=== PATIENT | female | born 1970 | race Caucasian/White ===

== ENCOUNTER → 2016-11-11 | Outpatient (CLI) | payer OTHER ==
--- NOTE | 2016-11-11 10:32 | US ---
EXAM DESCRIPTION: Gallbladder ultrasound. CLINICAL HISTORY: Right upper quadrant pain COMPARISON: None. TECHNIQUE: Transabdominal sonography was performed by an computed tomography technologist. FINDINGS: The liver is echogenic. It measures 16 cm in diameter. No mass noted. No intrahepatic biliary duct dilatation. Cholelithiasis is noted. Gallbladder wall is not thickened. The common bile duct measures 5-6 mm on today's study. The pancreas is poorly visualized due to overlying bowel gas. Pancreatic body is unremarkable. IMPRESSION: Echogenic liver compatible with hepatocellular disease or fatty infiltration. Cholelithiasis. No evidence of acute cholecystitis on today's study. Electronically signed by: James Schumacher MD 11/11/2016 10:30
== END ==
LOC: US 08:30
PROVIDERS: ATTEND Family Medicine
DX: K80.20 Calculus of gallbladder without cholecystitis without obstruction (principal)

== ENCOUNTER → 2016-12-31 | Outpatient (CLI) | payer OTHER | END | disposition home or self-care (01) | LOC: LAB 07:30 | PROVIDERS: ATTEND Nurse Practitioner Acute Care | DX: E34.9 Endocrine disorder, unspecified (principal) ==

== ENCOUNTER → 2017-03-01 | Outpatient (CLI) | payer OTHER | END | disposition home or self-care (01) | LOC: LAB.O 15:19 | PROVIDERS: ATTEND Nurse Practitioner Acute Care | DX: N95.1 Menopausal and female climacteric states (principal); E07.89 Other specified disorders of thyroid; E34.9 Endocrine disorder, unspecified ==

== ENCOUNTER 2017-05-31 05:52 | Emergency (ER) | payer OTHER ==
--- NOTE | 2017-05-31 06:01 | ED.PDOC ---
History of Present Illness - General Source: patient Exam Limitations: no limitations - History of Present Illness Initial Comments: Kelly Conte 47 y/o female stated that she had 2-3 episodes of watery diarrhea about 2 hours ago with vomiting 2x.Ate fish tonight .No ill contact. Timing/Duration: 1-3 hours Severity: moderate Improving Factors: nothing Worsening Factors: eating Associated Symptoms: nausea/vomiting <Alex Bryson R - Last Filed: 05/31/17 06:36> <Alli Moody L - Last Filed: 05/31/17 07:47> - General Chief Complaint: GI Problem Stated Complaint: diarrhea Time Seen by Provider: 05/31/17 05:58 - History of Present Illness Allergies/Adverse Reactions: Allergies Penicillin G Adverse Reaction (Verified 05/31/17 06:06) Home Medications: Ambulatory Orders Ondansetron [Zofran Odt] 4 mg PO Q4H PRN #10 tab 05/31/17 Pristiq 05/31/17 Synthroid 05/31/17 Review of Systems - Review of Systems Constitutional: States: no symptoms reported EENTM: States: no symptoms reported Respiratory: States: no symptoms reported Cardiology: States: no symptoms reported Gastrointestinal/Abdominal: States: see HPI Genitourinary: States: no symptoms reported Musculoskeletal: States: no symptoms reported Skin: States: no symptoms reported Neurological: States: no symptoms reported Endocrine: States: no symptoms reported <Alex Bryson R - Last Filed: 05/31/17 06:36> Past Medical History (General) - Patient Medical History Hx Seizures: No Hx Stroke: No Hx Dementia: No Hx Asthma: No Hx of COPD: No Hx Cardiac Disorders: No Hx Congestive Heart Failure: No Hx Pacemaker: No Hx Hypertension: No Surgical History: no surgical history - Social History Hx Tobacco Use: No Hx Alcohol Use: No Hx Substance Use: No Hx Depression: No Feels Threatened In Home Enviroment: No Feels Threatened In a Relationship: No Hx Physical Abuse: No Hx Emotional Abuse: No Hx Suspected Abuse: No - Activities of Daily Living Patient Lives Alone: No <Alex Bryson R - Last Filed: 05/31/17 06:36> Family Medical History - Family History Father Family History: Unknown <Alex Bryson R - Last Filed: 05/31/17 06:36> Physical Exam - Physical Exam General Appearance: Alert, Comfortable, No apparent distress Eye Exam: bilateral normal Ears, Nose, Throat: hearing grossly normal, normal ENT inspection, normal pharynx Neck: non-tender, full range of motion, supple Respiratory: chest non-tender, lungs clear, normal breath sounds Cardiovascular/Chest: normal peripheral pulses, regular rate, rhythm, no murmur Peripheral Pulses: radial,right: 1+, radial,left: 1+ Gastrointestinal/Abdominal: normal bowel sounds, non tender, soft, no organomegaly Back Exam: normal inspection, no CVA tenderness, no vertebral tenderness Extremity: non-tender, no pedal edema, no calf tenderness Neurologic: alert, normal mood/affect, oriented x 3 Skin Exam: normal color, warm/dry Lymphatic: no adenopathy <Alex Bryson R - Last Filed: 05/31/17 06:36> Progress - Progress Progress: 05/31/17 06:37 Vital Signs - 8 hr 05/31/17 05:53 Temperature 97.2 F L Pulse Rate [ 72 radial] Respiratory 18 Rate Blood Pressure 109/75 [left upper arm ] O2 Sat by Pulse 95 Oximetry <Alex Bryson R - Last Filed: 05/31/17 06:36> - Results/Orders Results/Orders: 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 She did have some significant dehydration primarily from the diarrhea. She has received a liter of IV fluids. Her C. difficile test given her occupation was negative. She is feeling better at this time. She will be written for some Zofran to use as needed to control nausea and she can use some Imodium as needed to control the diarrhea. She does need to keep well-hydrated. ER warnings were given for any significant worsening. Diagnosis is gastroenteritis. <Alli Moody L - Last Filed: 05/31/17 07:47> Departure <Alex Bryson - Last Filed: 05/31/17 06:36> - Departure Diet: bland diet Activity: increase activity as tolerated <Alli Moody - Last Filed: 05/31/17 07:47> - Departure Clinical Impression: Diarrhea Qualifiers: Diarrhea type: unspecified type Qualified Code(s): R19.7 - Diarrhea, unspecified Disposition: Discharge to Home or Self Care Condition: Fair Departure Forms: ED Discharge - Pt. 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 She did have some significant dehydration primarily from the diarrhea. She has received a liter of IV fluids. Her C. difficile test given her occupation was negative. She is feeling better at this time. She will be written for some Zofran to use as needed to control nausea and she can use some Imodium as needed to control the diarrhea. She does need to keep well-hydrated. ER warnings were given for any significant worsening. Diagnosis is gastroenteritis.
[2017-05-31] MEDS ORDERED: LACTATED RINGERS 1,000 ML IVS ONE (06:06)
[2017-05-31] MEDS ORDERED: ONDANSETRON INJ 4 MG/2 ML VIAL IV ONE (06:06)
[2017-05-31] MEDS ORDERED: DICYCLOMINE HCL INJ 20 MG/2 ML AMP IM ONE (06:26)
[2017-05-31 07:56] VITALS: BP 106/65; TEMP 98.4; O2SAT 97
== END 2017-05-31 08:02 | disposition home or self-care (01) ==
LOC: ER 05:52
DX: R19.7 Diarrhea, unspecified (principal); E86.0 Dehydration; Z88.0 Allergy status to penicillin
CPT/HCPCS: 87045; 87046; 87324; 87449; J0500; J2405; J7120

== ENCOUNTER → 2017-09-04 | Outpatient (CLI) | payer OTHER | END | disposition home or self-care (01) | LOC: LAB.O 07:05 | PROVIDERS: ATTEND Nurse Practitioner Acute Care | DX: E03.9 Hypothyroidism, unspecified (principal); E53.8 Deficiency of other specified B group vitamins; E55.9 Vitamin D deficiency, unspecified ==

== ENCOUNTER → 2017-09-07 | Outpatient (CLI) | payer OTHER ==
--- NOTE | 2017-09-09 11:24 | MAM ---
EXAM DESCRIPTION: 3D Screening BILATERAL : Digital Mammography. CLINICAL HISTORY: 47 years Female SCREENING . No complaints. No family history of breast cancer. Menstrual status unknown. COMPARISON: 2-D digital screening bilateral study 07/28/2016 and 06/22/2014.. Report from prior examination also reviewed. TECHNIQUE: Bilateral CC and MLO projection full-field images, 3-D tomosynthesis digital mammographic technique. Also bilateral synthesized CC/ MLO full-field images. CAD not utilized. FINDINGS: The breast parenchymal density pattern is: Scattered areas of fibroglandular density. No skin thickening or nipple retraction bilateral dense tissue in the retroareolar regions. Bilateral solitary microcalcifications. Bilateral intramammary lymph nodes and left axillary lymph nodes. Focal asymmetry and possible architectural distortion in the upper inner quadrant of the anterior third of the left breast at the 930 clock position. Not well seen on the prior study. No focal, stellate mass or density, focal asymmetry , and no suspicious microcalcifications right breast. IMPRESSION: BI-RADS CATEGORY: 0 - INCOMPLETE- Need additional imaging evaluation. FOLLOW-UP: Recall for additional imaging: Digital 3-D tomosynthesis left breast LM full-field image and targeted left breast ultrasound of the region of interest.. Written communication concerning the IMPRESSION and Follow-up, will be mailed to the patient and referring health care provider. Electronically signed by: Garo Garcia MD 09/09/2017 11:23 AM FILM OR TAPE LIBRARIAN
== END ==
LOC: MAMMO 14:30
PROVIDERS: ATTEND Family Medicine
DX: Z12.31 Encounter for screening mammogram for malignant neoplasm of breast (principal)
CPT/HCPCS: 77063; G0202

== ENCOUNTER → 2017-09-24 | Outpatient (CLI) | payer OTHER ==
--- NOTE | 2017-09-24 15:03 | US ---
EXAM DESCRIPTION: Breast,Left: Ultrasound CLINICAL HISTORY: 47 yearsFemaleABNORMAL MAMMO. Focal asymmetry anterior third of the medial left breast. COMPARISON: Digital diagnostic 3-D tomosynthesis left breast on this visit. 3-D tomosynthesis bilateral screening study 09/07/2017. TECHNIQUE: Transcutaneous scanning of the anterior medial left breast utilizing two-dimensional and Doppler modes. Scanning performed by the assistant professor of criminal justice and Dr. Garcia. FINDINGS: Scanning at the 900 clock position of the left breast from the nipple to 4 cm posterior. Well-defined hypoechoic mass with circumscribed with minimal lobulation. Uniform decreased echoes. Parallel orientation. Dimensions 12.6 x 7.8 x 6.2 mm. Posterior edge acoustic shadowing. Mostly posterior acoustic neutral. Minimally vascular. Differential includes fibroadenoma or a reactive lymph node. No cyst. No parenchymal edema or large calcification. No skin thickening. IMPRESSION: 1. Bi-Rads Category 3: Probably Benign Findings. 2. Please refer to diagnostic 3-D tomosynthesis examination and report left breast on this visit. The FINDINGS and the follow-up plan were reviewed in person with the patient after the examination. Written communication explaining the IMPRESSION and follow-up will be mailed to the patient and referring care provider. Electronically signed by: Garo Garcia MD 09/24/2017 3:02 PM [employer]
--- NOTE | 2017-09-24 15:06 | MAM ---
EXAM DESCRIPTION: 3D Diagnostic, Left: Digital Mammography CLINICAL HISTORY: 47 yearsFemaleABNORMAL MAMMO . Focal asymmetry upper inner quadrant. Left breast anterior third. No complaints. COMPARISON: 3-D screening digital bilateral examination 09/07/2017. Targeted left breast ultrasound following this examination.. Reports from prior examinations also reviewed. TECHNIQUE: Left breast LM projection full-field images, 3-D tomosynthesis digital mammographic technique. Also left breast synthesized LM full-field images. CAD not utilized. FINDINGS: The breast parenchymal density pattern is: Scattered areas of fibroglandular density. No skin thickening or nipple retraction focal asymmetry again noted at approximately 900 clock position of the anterior third of the left breast. No associated microcalcifications. ULTRASOUND: Scanning at the 900 clock position of the left breast from the nipple to 4 cm posterior. Well-defined hypoechoic mass with circumscribed with minimal lobulation. Uniform decreased echoes. Parallel orientation. Dimensions 12.6 x 7.8 x 6.2 mm. Posterior edge acoustic shadowing. Mostly posterior acoustic neutral. Minimally vascular. Differential includes fibroadenoma or a reactive lymph node. No cyst. No parenchymal edema or large calcification. No skin thickening. IMPRESSION: BI-RADS CATEGORY: 3 - PROBABLY BENIGN. Management: Short interval (6-month) follow-up digital diagnostic left breast mammography and continued surveillance targeted left breast ultrasound. The FINDINGS and the follow-up plan were reviewed in person with the patient after the examination. Written communication explaining the IMPRESSION and follow-up will be mailed to the patient and referring care provider. Electronically signed by: Garo Garcia MD 09/24/2017 3:05 PM [facility]
== END ==
LOC: US 10:00
PROVIDERS: ATTEND Nurse Practitioner Acute Care
DX: R92.8 Other abnormal and inconclusive findings on diagnostic imaging of breast (principal)
CPT/HCPCS: 76641; G0206; G0279

== ENCOUNTER 2017-10-05 05:39 | Day surgery (SDC) | payer OTHER ==
[2017-10-05] MEDS ORDERED: LACTATED RINGERS 1,000 ML ONE (06:31)
[2017-10-05] MEDS ORDERED: levoFLOXacin 500MG IV 100 ML IVPB ONE (06:32)
[2017-10-05] MEDS ORDERED: MIDAZOLAM INJ 2 MG/2 ML VIAL ONE (07:29)
[2017-10-05] MEDS ORDERED: fentaNYL CITRATE INJ 50 MCG/ML AMP ONE (07:29)
[2017-10-05] MEDS ORDERED: ROCURONIUM BROMIDE 10 MG/ML VIAL ONE (07:30)
[2017-10-05] MEDS ORDERED: HEPARIN SODIUM (PORCINE) 10,000 UNITS/ML VIAL ONE (08:05)
[2017-10-05] MEDS ORDERED: BUPIVACAINE 0.25% W/EPI 50 ML VIAL INJ ONE (08:05)
[2017-10-05] MEDS ORDERED: levoFLOXacin 500MG IV 500 MG/100 ML BAG IVPB ONE (08:30)
[2017-10-05] MEDS ORDERED: NEOSTIGMINE METHYLSULFATE 1 MG/ML ML IV ONE (10:00)
[2017-10-05] MEDS ORDERED: PROPOFOL 200 MG/20 ML VIAL IV ONE (10:00)
[2017-10-05] MEDS ORDERED: ONDANSETRON INJ 4 MG/2 ML VIAL IV ONE (10:00)
[2017-10-05] MEDS ORDERED: LIDOCAINE 1% 10 ML VIAL INJ ONE (10:00)
[2017-10-05] MEDS ORDERED: ATROPINE SULFATE 0.4 MG/ML 1ML VIAL IV ONE (10:00)
[2017-10-05] MEDS ORDERED: METOCLOPRAMIDE HCL INJ 10 MG/2 ML VIAL IV ONE (10:00)
--- NOTE | 2017-10-05 10:58 | OP ---
DATE OF PROCEDURE: 10/05/17 PREOPERATIVE DIAGNOSIS: 1. Symptomatic cholelithiasis. 2. Fatty infiltration of the liver. POSTOPERATIVE DIAGNOSIS: 1. Symptomatic cholelithiasis. 2. Chronic cholecystitis. 3. Fatty infiltration of the liver. PROCEDURE: 1. Laparoscopic cholecystectomy with intraoperative cholangiography using fluoroscopy. 2. Wedge biopsy of right lobe of the liver. SURGEON: Lb Anand MD. TELECOMMUNICATIONS CLERK: None. ANESTHESIA: Local infiltration of 0.25% Marcaine with epinephrine and general endotracheal anesthesia. INDICATION: The patient is a 47-year-old female who has had typical fatty food intolerance with bloating and discomfort. She has sonographically diagnosed cholecystectomy which also is consistent with fatty infiltration of the liver. The patient was brought to the Surgical Suite today for cholecystectomy with cholangiography and wedge biopsy of the right lobe of the liver after the risks , benefits and alternatives to the procedure were discussed and accepted. FINDINGS: The gallbladder wall was thickened. There were multiple stones within the gallbladder . Intraoperative cholangiography revealed free flow into the duodenum with no filling defects or strictures noted. The liver appeared to be minimally involved with fatty infiltration. Pathology is pending. DESCRIPTION OF PROCEDURE: After adequate general endotracheal anesthesia was obtained, the patient was prepped and draped in the usual sterile manner. The infraumbilical area was infiltrated with local anesthesia. An infraumbilical incision was fashioned with a sharp knife and carried down through the skin and subcutaneous tissue to the midline fascia using blunt dissection. Traction sutures were placed on either side of the midline. A small incision was made in the midline fascia and the peritoneum was opened bluntly. Maureen trocar was introduced under direct vision into the abdominal cavity and fixed in place with the 20 mL balloon. CO2 was then insufflated until a pressure of 12 mmHg was reached and the abdomen was tympanitic in all four quadrants. When this was done, the laparoscope was introduced. The abdomen was inspected with the previously noted findings. The patient was then placed in reverse Trendelenburg position, turned to the left side. The upper abdominal ports were placed under direct vision. The gallbladder was grasped, retracted anteriorly and laterally. A small amount of adhesions to the neck of the gallbladder were taken down using blunt dissection. The cystic artery was identified anteriorly. It was clipped proximally and distally and then divided. The cystic duct was identified and followed up to the gallbladder. It was clipped at the gallbladder and a small incision was made proximal to the gallbladder clip. A small amount of bile was obtained. The cholangiogram catheter was introduced through a separate stab wound in the right upper quadrant, introduced into the cystic duct and clipped in place. Cholangiograms were then taken using fluoroscopy which revealed free flow into the duodenum with no filling defects or strictures identified. The upper abdominal tree was identified minimally, but no pathology was identified. When this was done, the cystic duct catheter was removed. The cystic duct was hemoclipped three times distally and divided between the hemoclips. The cystic artery had been divided. The gallbladder was then dissected free from the gallbladder bed of the liver. A second arterial vessel was identified on the bed of the gallbladder. This was clipped and divided. The gallbladder was then removed from the infraumbilical port site in the usual manner under direct vision. When this was done, the subhepatic space and subphrenic space were irrigated with saline. The gallbladder bed of the liver was checked and noted to have excellent hemostasis. At this point, wedge biopsy of the liver was performed medial to the gallbladder bed with sharp scissors. The specimen was removed from the abdomen and for pathologic evaluation. Cautery was turned up to 50 and the wedge biopsy site hemostasis was obtained use electrocautery. When hemostasis was good, then again the subhepatic space and subphrenic space were irrigated with saline. Hemostasis was noted to be adequate. The effluent was noted to be clear. The ranjit hepatis was inspected and no bleeding or bile leak was identified. The gallbladder bed of the liver was dry, as was the biopsy site. The upper abdominal ports were removed under direct vision and good hemostasis was noted. At this point, the CO2, the laparoscope and the infraumbilical port were removed. The infraumbilical port site fascia was approximated with a single [id number]-cbyne suture of 0 Vicryl. Subcutaneous tissue was irrigated with saline. Skin edges were approximated with 4-0 Vicryl subcuticular sutures , benzoin and Steri-Strips. Sterile dressings were applied. The patient was awakened and taken to the Recovery Room in good and stable condition. Estimated blood loss was less than 50 mL. All sponge, needle and instrument counts were correct. [facility][id number] [facility]
[2017-10-05] MEDS ORDERED: ONDANSETRON INJ 4 MG/2 ML VIAL ONE (11:15)
[2017-10-05] MEDS ORDERED: DEXAMETHASONE INJ 10 MG/ML VIAL ONE (11:15)
[2017-10-05 12:17] VITALS: BP 120/74; TEMP 98; O2SAT 95
== END 2017-10-05 12:00 | disposition home or self-care (01) ==
LOC: AMB 05:39
PROVIDERS: ATTEND Surgery
DX: K80.10 Calculus of gallbladder with chronic cholecystitis without obstruction (principal); K76.0 Fatty (change of) liver, not elsewhere classified; K21.9 Gastro-esophageal reflux disease without esophagitis; E03.9 Hypothyroidism, unspecified; E66.9 Obesity, unspecified; F32.9 Major depressive disorder, single episode, unspecified; Z88.0 Allergy status to penicillin; I83.90 Asymptomatic varicose veins of unspecified lower extremity; Z87.891 Personal history of nicotine dependence; Z79.899 Other long term (current) drug therapy
CPT/HCPCS: 00790; 36415; 47001; 47563; 76000; 80053; 81001; 81025; 85025; J1100; J1644; J1956; J2250; J2405; J2710; J2765; J3010; J3490; J7120

== ENCOUNTER → 2017-11-04 | Outpatient (CLI) | payer OTHER | END | disposition home or self-care (01) | LOC: YCFC.O 16:19 | PROVIDERS: ATTEND Nurse Practitioner Family | DX: R50.9 Fever, unspecified (principal) ==

== ENCOUNTER → 2017-12-27 | Outpatient (CLI) | payer OTHER | LOC: GMAM 07:30 | PROVIDERS: ATTEND Family Medicine | DX: K76.0 Fatty (change of) liver, not elsewhere classified (principal) ==

== ENCOUNTER → 2018-02-07 | Outpatient (CLI) | payer OTHER | LOC: GMALS 07:05 | PROVIDERS: ATTEND Nurse Practitioner Acute Care | DX: E34.9 Endocrine disorder, unspecified (principal) ==

== ENCOUNTER → 2018-02-21 | Outpatient (CLI) | payer OTHER | LOC: GMALS 08:15 | PROVIDERS: ATTEND Nurse Practitioner Acute Care | DX: E34.9 Endocrine disorder, unspecified (principal) ==

== ENCOUNTER → 2018-04-26 | Outpatient (CLI) | payer OTHER ==
--- NOTE | 2018-04-26 11:17 | US ---
EXAM DESCRIPTION: Breast,Left: Ultrasound CLINICAL HISTORY: 48 yearsFemale6 MONTH FOLLOW UP COMPARISON: Targeted 2-D ultrasound mammogram left breast 09/24/2017. TECHNIQUE: Transcutaneous scanning of the left breast utilizing jackman-scale and Doppler modes. Scanning performed by the cable splicer helper with Dr. Garcia observing. FINDINGS: Hypoechoic mass measuring 1.3 x 1.0 cm at the 900 clock position of the left breast, 4 cm from the nipple. Compared to the prior study, there is more irregularity and lobularity of the margins and also increased posterior sound attenuation or shadowing. The lesion remains wider than tall/parallel orientation. No adjacent distinct solid mass or cyst. No large calcifications or abnormal vascularity. No overlying skin changes. Repeat digital diagnostic mammography of the left breast was deferred. IMPRESSION: BI-RADS CATEGORY 4: SUSPICIOUS. SUB-CATEGORY 4A - LOW SUSPICION FOR MALIGNANCY. Surgical consultation and tissue diagnosis should be considered. The FINDINGS and follow-up plan were reviewed in person with the patient following the examination. Written communication explaining the IMPRESSION and follow-up will be mailed to the patient and referring care provider. CRITICAL COMMUNICATION: The critical value was discussed directly by phone with Dr. Lb Anand at approximately 1100 hours, on April 26, 2018, and by phone with Ms. Gabrielle Connell, nurse practitioner at approximately 1110 hours on April 26, 2018. Electronically signed by: Garo Garcia MD 04/26/2018 11:12 AM CDT
== END ==
LOC: MAMMO 09:30
PROVIDERS: ATTEND Nurse Practitioner Acute Care
DX: R92.8 Other abnormal and inconclusive findings on diagnostic imaging of breast (principal)

== ENCOUNTER → 2018-04-27 | Outpatient (CLI) | payer OTHER ==
--- NOTE | 2018-04-27 12:25 | US ---
EXAM DESCRIPTION: Biopsy/Needle Guidance: Ultrasound. CLINICAL HISTORY: 48 years Female BREAST LUMP COMPARISON: Diagnostic ultrasound of the left breast on 04/26/2018. TECHNIQUE: The procedure was performed by Dr. Anand. Repeat ultrasound localized left breast mass at the 900 position of the left breast 4 cm from the nipple.. Sterile preparation. Sterile ultrasound guidance during needle passes. FINDINGS: Multiple images demonstrate the mass before and during passage of the echogenic needle through the mass. IMPRESSION: Successful, ultrasound-guided core needle biopsy of left breast mass. Adequate core samples were obtained. Pathology examination at remote facility, results pending. Electronically signed by: Garo Garcia MD 04/27/2018 12:24 PM CDT
--- NOTE | 2018-04-27 13:17 | OP ---
DATE OF PROCEDURE: 04/27/18 PREOPERATIVE DIAGNOSIS: 1. Irregular left mammogram with a mass at the 9 o'clock position which is solid. POSTOPERATIVE DIAGNOSIS: 1. Irregular left mammogram with a mass at the 9 o'clock position which is solid. PROCEDURE: 1. Sonographically guided needle core biopsy, left breast mass. SURGEON: Lb Anand MD. GENERAL STUDIES PROGRAM CHAIR: None. ANESTHESIA: Local infiltration of 1% lidocaine. INDICATION: The patient is a 48-year-old female who on followup mammography for hormone therapy was found to have a solid, irregular mass at the 9 o'clock position and she as brought to the Ultrasound Suite for sonographically guided biopsy. FINDINGS: Four good cores were obtained with the needle within the mass on ultrasound. PROCEDURE: After the patient was placed in the supine position and the breast was examined with the ultrasound, the lesion was identified. The ultrasound probe was maneuvered until the biopsy site was identified below the areola. This was prepped with Betadine and then draped. Local infiltration of anesthesia was obtained with 1% lidocaine. A stab wound was made with a 15 blade and then under direct vision, multiple passes were made with the biopsy needle taking four specimens. Hemostasis was obtained with pressure. A single suture of 4-0 Nylon was placed in the skin edge. Sterile pressure dressing was applied. The patient tolerated the procedure well. Estimated blood loss was less than 5 mL. The specimen was sent for pathological evaluation. #[id number] [facility]
== END ==
LOC: US 09:00
PROVIDERS: ATTEND Surgery
DX: N63.20 Unspecified lump in the left breast, unspecified quadrant (principal)

== ENCOUNTER → 2018-05-07 | Outpatient (CLI) | payer OTHER | LOC: GMATM 14:01 | PROVIDERS: ATTEND Nurse Practitioner Family | DX: E34.9 Endocrine disorder, unspecified (principal) ==

== ENCOUNTER → 2018-07-10 | Outpatient (CLI) | payer OTHER | LOC: LAB.O 07:40 | PROVIDERS: ATTEND Nurse Practitioner Acute Care | DX: E03.9 Hypothyroidism, unspecified (principal); E53.8 Deficiency of other specified B group vitamins ==

== ENCOUNTER → 2019-06-10 | Outpatient (CLI) | payer BC ==
--- NOTE | 2019-06-13 20:02 | MAM ---
EXAM DESCRIPTION: 3D Screening BILATERAL : Digital Mammography. CLINICAL HISTORY: 49 years Female ANNUAL SCREENING . No complaints. No personal or family history of breast cancer. Premenopausal. Benign left breast biopsy. Lifetime risk of developing breast cancer (Tyrer-Cuzick model)(%): Not calculated COMPARISON: Bilateral screening digital breast tomosynthesis 05/07/2017. Left breast diagnostic tomosynthesis 09/24/2017. Ultrasound targeted left breast 09/24/2017 and 04/26/2018.. TECHNIQUE: Bilateral CC and MLO projection full-field images, digital tomosynthesis mammographic technique. Bilateral digital 2-D full-field MLO images. CAD not available for tomosynthesis or 2-D images. FINDINGS: The breast parenchymal density pattern is: Scattered areas of fibroglandular density. No skin thickening or nipple retraction. Again noted is dense fibroglandular tissues in the anterior third of both breasts. Bilateral scattered solitary microcalcifications. Bilateral axillary lymph nodes. No new focal, stellate mass or density, focal asymmetry , and no suspicious microcalcifications bilaterally. Stable mammograms compared to prior study. IMPRESSION: Benign exam. BIRAD CATEGORY: 2 BENIGN FINDINGS. RECOMMENDATIONS: FOLLOW UP: Routine digital bilateral mammographic screening, one year interval from May 2019. Written communication explaining the IMPRESSION and follow-up, will be mailed to the patient and referring health care provider. According to the [employer], yearly mammograms are recommended starting at age 40 and continuing as long as a woman is in good health. Any breast change noted on a breast self-exam should be reported promptly to the patient's healthcare provider. Breast MRI is recommended for women with an approximately 20-25% or greater lifetime risk of breast cancer, including women with a strong family history of breast or ovarian cancer and women who have been treated for Hodgkin's disease. A negative mammographic report should not delay tissue diagnosis in patients with significant clinical history or physical findings. Extremely dense breast tissue limits the sensitivity of digital mammography. Electronically signed by: Garo Garcia MD 06/13/2019 8:00 PM CDT
== END ==
LOC: MAMMO 13:27
PROVIDERS: ATTEND Family Medicine
DX: Z12.31 Encounter for screening mammogram for malignant neoplasm of breast (principal)

== ENCOUNTER → 2020-06-29 | Outpatient (CLI) | payer BC ==
--- NOTE | 2020-07-03 17:02 | MAM ---
EXAM DESCRIPTION: 3D Screening BILATERAL : Digital Mammography. CLINICAL HISTORY: 50 years Female SCREENING no complaints and no family history breast cancer. Menarche age 13. No childbirth. Premenopausal. Currently on HRT.. Lifetime risk of developing breast cancer (Tyrer-Cuzick model)(%): 12.4. COMPARISON: Bilateral screening digital breast tomosynthesis May 2019 and August 2017. TECHNIQUE: Bilateral CC and MLO projection full-field images, digital tomosynthesis mammographic technique. Bilateral digital 2-D full-field MLO images. CAD available for 2-D images. FINDINGS: The breast parenchymal density pattern is: Scattered areas of fibroglandular density. No skin thickening or nipple retraction. Fibroglandular tissues mostly anterior half of both breasts. Intramammary lymph nodes. Left axillary nodes. No new focal, stellate mass or density, focal asymmetry , and no suspicious microcalcifications bilaterally. Stable mammograms compared to prior study. IMPRESSION: Benign exam. BIRAD CATEGORY: 2 BENIGN FINDINGS. RECOMMENDATIONS: FOLLOW UP: Routine digital bilateral mammographic screening, one year interval from June 2020. Written communication explaining the IMPRESSION and follow-up, will be mailed to the patient and referring health care provider. According to the [employer], yearly mammograms are recommended starting at age 40 and continuing as long as a woman is in good health. Any breast change noted on a breast self-exam should be reported promptly to the patient's healthcare provider. Breast MRI is recommended for women with an approximately 20-25% or greater lifetime risk of breast cancer, including women with a strong family history of breast or ovarian cancer and women who have been treated for Hodgkin's disease. A negative mammographic report should not delay tissue diagnosis in patients with significant clinical history or physical findings. Extremely dense breast tissue limits the sensitivity of digital mammography. Electronically signed by: Garo Garcia MD 07/03/2020 5:01 PM CDT
== END ==
LOC: MAMMO 15:18
PROVIDERS: ATTEND Family Medicine
DX: Z12.31 Encounter for screening mammogram for malignant neoplasm of breast (principal)